=== PATIENT | female | born 1960 | race American Indian/Alaskan Native ===

== ENCOUNTER 2024-10-15 15:25 | Emergency (ER) | payer OTHER ==
[~2024-10-15] VITALS: Ht 165.1 cm; Wt 77.5 kg
[~2024-10-15 15:25] MED LIST: ANTIHISTAMINE25 MG PO; BACTRIM DS TAB1 EACH PO; BACTROBAN22 GM TOP
[2024-10-15] MEDS ORDERED: HYDROCODON-ACE1 EA10 PO (21:52)
[2024-10-15] MEDS ORDERED: HYDROCODONE BIT/ACETAMINOPHEN 5/325 MG 1 TAB HOME.PACK PO ONE (22:00)
[2024-10-15] MEDS ORDERED: HYDROCODONE/ACETA 7.5/325 TAB PO ONE (22:00)
[2024-10-15 22:08] VITALS: BP 130/81
[2024-10-18] MEDS ORDERED: IBUPROFEN200 M1 PO (09:56)
== END 2024-10-15 22:08 | disposition home or self-care (01) ==
LOC: ED 15:25
DX: S52.592A Other fractures of lower end of left radius, initial encounter for closed fracture (principal); W18.30XA Fall on same level, unspecified, initial encounter
CPT/HCPCS: 73110; 99283; A9270

== ENCOUNTER 2024-10-22 09:55 | Day surgery (SDC) | payer OTHER ==
[~2024-10-22] VITALS: Ht 165.1 cm; Wt 77.0 kg
[~2024-10-22 09:55] MED LIST changes: +CEFAZOLIN SODIUM 2 GM/20 ML SYR IV SCH; +HYDROCODON-ACE1 EA10 PO; +IBLOOD GLUCOSE TEST STRIP 1 EA TEST VI PRN; +IBUPROFEN200 M1 PO; +LACTATED RINGER'S 1,000 ML IV SCH; +LIDOCAINE HCL 1% 5 ML SDV INJ ONE; +TRANEXAMIC ACID IN NACL,ISO-OS 1,000 MG/100 ML PIGGYBACK IV SCH
[2024-10-22 10:10] VITALS: BP 122/79
[2024-10-22] MEDS ORDERED: TRANEXAMIC ACID IN NACL,ISO-OS 200 ML IV ONE (10:21)
[2024-10-22] MEDS ORDERED: DEXAMETHASONE SOD PHOS 4 MG/ML VIAL ONE ×2 (10:31)
[2024-10-22] MEDS ORDERED: LIDOCAINE HCL 2% 5 ML SDV ONE (10:31)
[2024-10-22] MEDS ORDERED: HYDROCODONE/ACETA 7.5/325 TAB PO PRN (11:30)
[2024-10-22] MEDS ORDERED: HYDROCODON-ACE1 EA11 PO (11:31)
[2024-10-22] MEDS ORDERED: CELECOXIB200 MG PO (11:31)
--- NOTE | 2024-10-22 11:46 | NUR ---
10/22/24 1146 Mali Castro 1133: PT ARRIVES TO PACU WITH ORAL AIRWAY IN PLACE, NON REACTIVE/AROUSAL. REPORT RECEIVED FROM ADULT SPECIALIST AND RACE STEWARD. FAUSTO 1138: ORAL AIRWAY REMOVED.
[2024-10-22] MEDS ORDERED: HYDROmorphone HCL 1 MG/ML SYR IV PRN (12:00)
[2024-10-22] MEDS ORDERED: MEPERIDINE HCL 25 MG/1 ML VIAL IV PRN (12:00)
[2024-10-22] MEDS ORDERED: NALOXONE HCL 0.4 MG SYR IV PRN (12:00)
[2024-10-22] MEDS ORDERED: fentaNYL citrate 50 MCG/ML SDV IV PRN (12:00)
[2024-10-22 12:06] VITALS: BP 129/78
--- NOTE | 2024-10-22 12:10 | NUR ---
CALL LIGHT R SIDE WATER AND CRACKERS GIVEN. S O AT BS.
[2024-10-22 13:00] VITALS: BP 148/73
--- NOTE | 2024-10-22 13:27 | NUR ---
1240 UP TO BR VOIDS QS. WAS INCONTINENT OF URINE IN BED ALSO.
--- NOTE | 2024-10-22 13:58 | NUR ---
FAUSTO FOR [id number] TROTTER DC ORDERS SAY TO REMOVE DRESSING ON POD 3CLARIFICATION LEAVE ON UNTIL SEEN POST OP.
[2024-10-22] MEDS ORDERED: CELECOXIB 200 MG CAP PO SCH (17:00)
--- NOTE | 2024-10-23 07:01 | OR ---
[facility] [address] [facility] [place], [place] [address] Signed DATE OF OPERATION: 10/22/2024 SURGEON: Stephanie Juarez MD PREOPERATIVE DIAGNOSIS: Left distal radius fracture displaced. POSTOPERATIVE DIAGNOSIS: Left distal radius fracture displaced. PROCEDURE PERFORMED: Open reduction and internal fixation of left distal radius. [employer]URE PRINCIPAL SOLUTION SPECIALIST: Coni Peralta PA-C. Coni was present and critical for all portions of the procedure. ANESTHESIA: General. BLOOD LOSS: None. TOURNIQUET TIME: 26 minutes. IMPLANTS: Garrett small DVR plate with six screws. BRIEF HISTORY: Delon is a 64-year-old female with a mildly displaced fracture. Risks and benefits of operative treatment were discussed with her and she elected to proceed. DESCRIPTION OF PROCEDURE: Once consent was obtained, she was taken to the operating room. After adequate anesthesia, she was placed on operating room table with a hand table. The arm was placed in well-padded proximal arm tourniquet and prepped and draped in a standard sterile fashion. The arm was exsanguinated using Esmarch bandage and tourniquet inflated to 200 mmHg. Standard volar approach through a longitudinal incision was carried through skin and subcutaneous tissue. The FCR was mobilized and retracted Electronically Signed By: STEPHANIE JUAREZ MD 10/23/24 0701 PATIENT NAME: DELON SHARIF OPERATIVE REPORT DATE OF : 64 REPORT #: [id number] PHYSICIAN: STEPHANIE JUAREZ MD PCP: [facility] REPORT IS CONFIDENTIAL AND NOT TO BE RELEASED WITHOUT AUTHORIZATION [facility] [address] [facility] [place], [place] [address] Signed ulnarly. The blunt dissection was taken down to the pronator, which was split longitudinally and elevated medially and laterally. The fracture was identified and reduced. The small DVR plate was then placed against the volar aspect of the distal radius and held with the central screw in the distal portion. This was then aligned using the image intensifier and the proximal screw was placed. This reduced the fracture and held in position quite nicely. The remaining proximal screw was filled and three more distal screws were filled. These were checked using image intensifier and found to be adequately positioned and good length. The wound was then copiously irrigated with normal saline. The pronator was repaired back into position over the plate using 3-0 Monocryl. The FCR sheath was closed using 3-0 Monocryl. The subcutaneous tissue was closed with 3-0 Monocryl and the skin with 3-0 Stratafix. Wound was sealed with LiquiBand and Steri-Strips and she was dressed with an Allevyn dressing, sterile cast padding and a radial gutter splint. She tolerated the procedure well. All sponge, needle, and instrument counts were correct. Stephanie Juarez MD BA/BALJEET /[id number] Copies: ~ Electronically Signed By: STEPHANIE JUAREZ MD 10/23/24 0701 PATIENT NAME: DELON SHARIF OPERATIVE REPORT DATE OF : 64 REPORT #: [id number] PHYSICIAN: STEPHANIE JUAREZ MD PCP: [facility] REPORT IS CONFIDENTIAL AND NOT TO BE RELEASED WITHOUT AUTHORIZATION
== END 2024-10-22 13:15 | disposition home or self-care (01) ==
LOC: DS 09:55
PROVIDERS: ATTEND Specialist
PROC: 0PSJ04Z Reposition Left Radius with Internal Fixation Device, Open Approach (ICD-10-PCS; principal; 2024-10-22 13:45)
DX: S52.552A Other extraarticular fracture of lower end of left radius, initial encounter for closed fracture (principal); W01.0XXA Fall on same level from slipping, tripping and stumbling without subsequent striking against object, initial encounter
CPT/HCPCS: 01830; 64417; 73100; A9270; C1713; J0690; J1100; J2003; J2405; J2704; J7121